=== PATIENT | female | born 1975 | race Caucasian/White ===

== ENCOUNTER 2023-07-08 18:00 | Emergency (ER) | payer OTHER, SELFPAY ==
--- NOTE | 2023-07-08 18:09 | ED.URI ---
HPI - URI/Sore Throat General Chief Complaint: Upper Respiratory Infection Stated Complaint: Sore Throat Source: patient and RN notes reviewed History of Present Illness HPI Narrative: 48 yo F presents to urgent care with complaints of sore throat, losing her voice, congestion, and headache. Pt states she had a sore throat and headache 2 weeks ago and was seen at her MD's office where she tested negative for strep. Pt was given Amoxicillin anyway and states her symptoms went away in 2 days. Pt states she finished her Abx this past Monday. Pt states her symptoms returned yesterday. Pt states she feels like she has congestion in her upper chest but can't cough it up b/c her throat hurts. Pt also reports a pain under her left breast when she inhales deeply that just started 2 days ago. Reports bilateral ear fullness and pain and contributes it to her lymph node swelling/pain. Pt denies any fevers, chills, SOB, vomiting, diarrhea, or chest pain. Pt has been taking ibuprofen, tylenol, mucinex, and sudafed at home without relief. Related Data Home Medications Medication Instructions Recorded Confirmed sertraline 100 mg tablet (Zoloft) 100 mg PO DAILY 03/02/20 01/06/23 magnesium 250 mg tablet 250 mg PO DAILY 07/08/23 07/08/23 Allergies Allergy/AdvReac Type Severity Reaction Status Date / Time sulfamethoxazole Allergy Severe vomiting, Verified 07/08/23 18:09 [From Bactrim] itchiness, SOB sulfamethizole Allergy Unknown SOB Verified 07/08/23 18:09 trimethoprim Allergy Unknown SOB Verified 07/08/23 18:09 Review of Systems Review of Systems: Pertinent positives and pertinent negatives per HPI. [facility] Past Medical History Medical History (Updated 07/08/23 @ 19:29 by Linsey Min APRN) Depression HLD (hyperlipidemia) Family History Family History Mother Family history of chronic obstructive pulmonary disease Other Asthma Diabetes mellitus Family history of arthritis Family history of cardiovascular disease Hypertension Social History Social History Smoking packs per day: 0.5 Smoking cigarettes per day: 10.0 Years smoked: 10 Smoking pack-years: 5.00 Smoking status: Never smoker Tobacco type: cigarettes Second hand tobacco smoke exposure: Yes Alcohol intake: never Substance use: never Substance use type: does not use Lack of Transportation: No Lack of Food: Never True Current Housing: I Have Housing Concerned About Future Housing: No Difficulty Paying Gas/Electric Bills: No Difficulty Paying for Meds: No Currently Unemployed: No Education: Associate Degree Difficulty w/ Childcare or Family Care: No Living arrangements: with family Occupation/Education: occupation Comments At the time of my signature, I reviewed and agree with the nursing past medical, surgical, social, and family history. There is no relevant family history pertinent to the patient complaint. Exam Narrative: GENERAL: This is a well-nourished, well-developed patient, in no apparent distress. HEAD: normocephalic, atraumatic. EYES: Sclera clear/white. Vision is grossly intact. EARS: External ears normal, auditory canals clear and without drainage, TMs normal without perforation. Hearing grossly intact. NOSE: External nose normal with no obvious nasal discharge, nares without redness, no rhinorrhea. THROAT: Mucous membranes moist, posterior pharynx mildly erythremic. tonsils bilaterally 2+. Hoarse voice NECK: Neck supple, non-tender without lymphadenopathy, masses or thyromegaly. CARDIOVASCULAR: Regular rate and rhythm without murmurs, gallops, or rubs. RESPIRATORY: Clear to auscultation. Breath sounds equal bilaterally. No wheezes, rales, or rhonchi. GASTROINTESTINAL: Abdomen soft, non-tender, nondistended. Bowel sounds are active. No hepato-splenomegaly, or palpabl
[2023-07-08 18:10] VITALS: BP 112/71; PULSE 74; RESP 16; TEMP 37.3; O2SAT 99
[2023-07-08] MEDS: predniSONE 20 MG TABLET 60 MG PO (19:36)
== END 2023-07-08 19:39 | disposition home or self-care (01) ==
PROVIDERS: Emergency Provider Nurse Practitioner Family; PCP Family Medicine
DX: B34.9 Viral infection, unspecified (principal); E78.5 Hyperlipidemia, unspecified; F32.A Depression, unspecified; F17.210 Nicotine dependence, cigarettes, uncomplicated
CPT/HCPCS: 87081; 87880; 99213; G0463; J7512

== ENCOUNTER 2023-07-18 11:11 | Outpatient (CLI) | payer OTHER, SELFPAY ==
[2023-07-18 11:57] LABS: Basophils Percent Auto 0.3 % (0.2-1.2); Eosinophils Absolute Auto 0.1 K/mm3 (0-0.3); Eosinophils Percent Auto 1.3 % (0-4.4); Hemoglobin 12.9 g/dL (12.0-15.0); Immature Granulocyte Absolute 0.04 K/mm3 (0.00-0.031); Immature Granulocyte Percent A 0.4 % (0-0.5); Lymphocytes Absolute Auto 2.37 K/mm3 (0.9-3.2); Lymphocytes Percent Auto 24.2 % (18.3-44.2); Mean Corpuscular HGB Conc 33.1 g/dl (32-36); Mean Corpuscular Hemoglobin 30.1 pg (26-34); Mean Corpuscular Volume 91.1 fl (80-100); Mean Platelet Volume 8.7 fl (7.4-10.4); Monocytes Absolute Auto 0.5 K/mm3 (0.1-0.6); Monocytes Percent Auto 5.3 % (2.6-8.5); Neutrophils Absolute Auto 6.7 K/mm3 (1.3-6.7); Neutrophils Percent Auto 68.5 % (45.5-73.1); Platelet Count Result 271 k/mm3 (150-375); Red Blood Count 4.28 M/mm3 (4.2-5.4); Red Cell Distribution Width 13.3 % (11.5-14.5); White Blood Count 9.8 K/mm3 (4.5-10.0)
[2023-07-22 16:27] LABS: EBV Nuclear Ab Antibody >600.00 U/mL (<18.00); EBV Nuclear Ab Interpretation Past; EBV Virus Capsid Ag IgM Ab <36.00 U/mL (<36.00)
== END 2023-07-18 11:12 | disposition home or self-care (01) ==
PROVIDERS: PCP Family Medicine; Visit Provider Physician Assistant
DX: R50.9 Fever, unspecified (principal); J02.9 Acute pharyngitis, unspecified
CPT/HCPCS: 36415; 85025; 86664; 86665

== ENCOUNTER 2025-01-16 12:45 | Outpatient (CLI) | payer OTHER, SELFPAY ==
--- NOTE | ~2025-01-16 | MM_ITS ---
EXAMINATION: MM screening [facility] BI w clarence HISTORY: Screening TECHNIQUE: Craniocaudal and mediolateral oblique 3-D tomosynthesis images were obtained and synthetic 2-D images were generated. CAD analysis was submitted and interpreted. COMPARISON: 07/15/2019 and dating back to 04/05/2011 BREAST PARENCHYMAL COMPOSITION: The breasts are heterogeneously dense, which may obscure small masses . FINDINGS: Punctate calcifications are detected bilaterally, stable and benign in appearance. Stable parenchymal pattern without suspicious microcalcifications, architectural distortion, discrete masses or significant asymmetry. IMPRESSION: 1. No mammographic evidence of malignancy. 2. Recommend routine screening mammography in one year. BI-RADS Category 2: Benign finding(s). Reviewed, dictated and finalized at location A.
--- OUTSIDE RECORDS SUMMARY | 2025-01-16 13:30 | XMS_ITS | Data Portability ---
Author Organization [facility] [place] Address [address] [place] [address] Care Team Providers Care Chef German Name Role Phone DINA LINTON Primary Care Provider [phone] Assessment Encounter Date Assessment Date Assessment LastModified by Organization Details LastModified Time 04/06/2022 04/06/2022 Annual gynecological exam performed. Patient will come back in a year unless there are new symptoms. Suggest Calcium with Vitamin D if not eating in diet. Patient advised to get annual flu shot. Recommend yearly physicals and preform monthly breast exams. Genetic testing is available for patients with family history of cancer. Engage in safe sexual practices, use condoms. Encouraged to have daily exercise. Avoid tobacco and illicit drugs, moderation of alcohol. If BMI greater than 25 dietary consult advised. If you have any questions please call or email. mammogram order given Not available 04/06/2022 10:52:36 04/26/2023 04/26/2023 Annual gynecological exam performed. Patient will come back in a year unless there are new symptoms. [email or web address] Not available 04/26/2023 15:34:05 Plan of Treatment Reminders Order Date Submit Date Provider Last Modified By Organization Details Last Modified Time Details Appointments [facility]-EST 2024 02:30P M NESHA SILVERMAN NP Not available Not available Not available Lab testoster one, total, serum 2022 023 [facility] (Lab), [address], [place], [address], 04/27/2023 03:45:45 hormone panel, serum or plasma 2022 023 [facility] (Lab), [address], [place], [address], 04/27/2023 03:45:46 HbA1c (hemoglob in A1c), blood 2022 023 [facility] (Lab), [address], [place], [address], 04/27/2023 03:45:46 Referral None recorded. Procedures None recorded. Surgeries None recorded. Imaging MAMMO, screening , bilateral 2022 023 [email or web address] [facility], [address] [address], [place], [address], 07/26/2023 13:51:36 US, pelvis 2021 022 [email or web address] [facility], [address], [place], [address], 04/19/2022 20:16:26 US, transvagi nal 2021 022 [email or web address] [place], [address], [address], [place], [address], 04/19/2022 20:16:26 Medication Orders sertralin e 100 mg tablet 2021 022 [id number], [address], [place], [place], [id number], 04/06/2022 10:53:35 Wellbutri n XL 150 mg 24 hr tablet, extended release 2021 022 [facility]24375, [address], [place], [place], [id number], 04/06/2022 10:53:34 Patient TargetsNo targets recorded. Patient InstructionsNo instructions recorded. Reason for Referral None Reported. Results Created Date Observation Date Name Description Value Unit Range Abnormal Flag Note LastModifiedBy Organization Detail LastModifiedTime 06/17/20 21 06/17/2021 VAGIN ITIS/ VAGIN OSIS, DNA PROBE melina sp. detection, direct probe Negati ve negati ve Not Available [facility] (Lab) [address], [place], [address], 06/18/2021 11:07:34 06/17/20 21 06/17/2021 VAGIN ITIS/ VAGIN OSIS, DNA PROBE gardnerella vag. detection, direct probe Positi ve negati ve abnormal Not Available [facility] (Lab) [address], [place], [address], 06/18/2021 11:07:34 06/17/20 21 06/17/2021 VAGIN ITIS/ VAGIN OSIS, DNA PROBE trichomonas vag. detection, direct probe Negati ve negati ve Not Available [facility] (Lab) [address], [place], [address], 06/18/2021 11:07:34 04/06/20 22 04/06/2022 FSH / LH FSH 29.5 mIU/m L This assay was perfo rmed using [employer] ratio n reage nts and test kits. Value s obtai aneudy with other assay metho ds or kits canno t be used inter ring eably . Femal es Folli cular : 3.5-1 2.5 mIU/m L Ovula tion: 4.7-2 1.5 mIU/m L Lutea l: 1.7-7 .7 mIU/m L Postm enopa use: 25.8- 134.8 mIU/m L Not Available [facility] (Lab) [address], [place], [address], 04/07/2022 03:50:27 04/06/20 22 04/06/2022 FSH / LH LH 20.9 mIU/m L This assay was perfo rmed using [employer] n reage nts and test kits. Value s obtai aneudy with other assay metho ds or kits canno t be used inter ring eably . Femal es Mid-F ollic ular: 2.4-1 2.6 mIU/m L Mid-C ycle: 14.0- 95.6 mIU/m L Mid-L uteal : 1.0-1 1.4 mIU/m L Postm enopa use: 7.7-5 8.5 mIU/m L Not Available [facility] (Lab) [address], [place], [address], 04/07/2022 03:50:27 04/06/20 22 04/06/2022 IMAGE GUIDE D PAP AND HPV REGAR DLESS image guided Pap, HPV regardless of Pap result SEE RESULT S BELOW CASE REPOR T: Cytol ogy Gynec ologi cesia Repor t Case: [id number] Autho bigg radha Provi junie: Myra Burnett NP Colle cted: 04/06 1758 Order ing Locat ion: [place] Patho log[facility] Recei obinna: 04/07 0813 First Scree n: Yohana Hairston, CT Rescr een: Pham green, Zunilda keith, CT Speci men: Scree jayne Pap - Image d, Cervi x STATE MENT OF ADEQU ACY: Satis facto ry for evalu ation Trans forma tion zone compo nent prese nt FINAL DIAGN OSIS: Negat lizz for Intra epith elial Lesio n or Wilton bean (NIL) . Funga l organ isms morph ologi dae consi stent with Katty da spp. Elect west chakraborty eula d by Zunilda Romero, CT on 2021 at 3:14 PM ----- ----- ----- ----- ----- ----- ----- ----- ----- ----- ----- ----- ----- ----- ----- ----- ----- ---- HPV RESUL TS: HPV mRNA E6/E7 : No HPV mRNA Detec mark NOTE: This high risk HPV mRNA assay detec ts fourt een high- risk HPV types (16, 18, 31, 33, 35, 39, 45, 51, 52, 56, 58, 59, 66, 68) witho ut diffe renti ation . COMME NT: Note: This speci men was revie wed by a Cytot echno logis t and/o r Patho logis t (as indic ated in this repor t) after evalu ation using the Thinp rep Imagi ng Syste m. CLINI CESIA INFOR MATIO N: Menst rual Statu s: LMP (if appli cable ): Clini cesia Histo ry/Pr eviou s Pap: Type of Neopl soctt (if appli cable ): Signi fican t Clini cesia Findi ngs: Other Histo ry: Hormo erich (if appli cable ): PAP EDUCA ROSHNI L NOTE: The Pap Test is a scree jayne test with an inher ent false negat lizz rate. Liqui d-bas ed sampl ing may decre ase, but will not elimi noemí, false negat lizz resul ts. A negat lizz resul t does not precl ude the prese nce and/o r devel opmen t of disea se, since the prese nce of abnor mal cells in the sampl e depen ds on the locat ion of the lesio n and sampl ing techn ique. Trey nued regul ar scree jayne is the best metho d of cance r preve ntion . If repor mark cytol ogic findi ng do not corre late with physi cesia and/o r histo rical findi ngs, furth er inves tigat ion is recom janki d, as clini dae medina nted. Not Available [facility] (Lab) [address], [place], [address], 04/11/2022 16:17:14 04/26/20 23 04/26/2023 TESTO STERO NE, TOTAL testosterone , total 30 NG/dL 0-100 Not Available [facility] (Lab) [address], [place], [address], 04/27/2023 03:45:45 04/26/20 23 04/26/2023 FSH, LH, ESTRA DIOL estradiol <5.0 pg/mL This assay was perfo rmed using [employer] ratio n reage nts and test kits. Value s obtai aneudy with other assay metho ds or kits canno t be used inter [facility] . Femal e Estra diol Range s: Folli cular phase 12.4- 233 pg/mL Ovula tion phase 41.0- 398 pg/mL Lutea l phase 22.3- 341 pg/mL Postm enopa usal< 5-138 pg/mL Healt hy Pregn ant Women 1st Trime ster1 54-32 43 pg/mL 2nd Trime ster1 561-2 1280 pg/mL 3rd Trime ster8 525-> 66123 pg/mL Not Available [facility] (Lab) [address], [place], [address], 04/27/2023 03:45:46 04/26/20 23 04/26/2023 FSH, LH, ESTRA DIOL FSH 92.3 mIU/m L This assay was perfo rmed using [employer] ratio n reage nts and test kits. Value s obtai aneudy with other assay metho ds or kits canno t be used inter [facility] . Femal es Folli cular : 3.5-1 2.5 mIU/m L Ovula tion: 4.7-2 1.5 mIU/m L Lutea l: 1.7-7 .7 mIU/m L Postm enopa use: 25.8- 134.8 mIU/m L Not Available [facility] (Lab) [address], [place], [address], 04/27/2023 03:45:46 04/26/20 23 04/26/2023 FSH, LH, ESTRA DIOL LH 56.2 mIU/m L This assay was perfo rmed using [employer] ratio n reage nts and test kits. Value s obtai aneudy with other assay metho ds or kits canno t be used inter [facility] . Femal es Mid-F ollic ular: 2.4-1 2.6 mIU/m L Mid-C ycle: 14.0- 95.6 mIU/m L Mid-L uteal : 1.0-1 1.4 mIU/m L Postm enopa use: 7.7-5 8.5 mIU/m L Not Available [facility] (Lab) [address], [place], [address], 04/27/2023 03:45:46 04/26/20 23 04/26/2023 HEMOG LOBIN A1C hemoglobin A1C 5.5 % 0-5.6 The Ameri can Diabe erika Assoc iatio n recom mends that a prima ry goal of thera py shoul d be a HBA1C of < 7% and that physi cians shoul d reeva luate the treat ment regim en in patie nts with HBA1C value s consi stent ly > 8%. <5.7% Meme l 5.7 - 6.4% Incre ased risk for diabe erika >=6.5 % Diagn ostic of diabe erika <7.0% Goal of thera py >8.0% Actio n sugge sted Not Available [facility] (Lab) [address], [place], [address], 04/27/2023 03:45:46 04/26/20 23 04/26/2023 IMAGE GUIDE D PAP AND HPV REGAR DLESS image guided Pap, HPV regardless of Pap result SEE RESULT S BELOW abnormal CASE REPOR T: Cytol ogy Gynec ologi cesia Repor t Case: [id number] Autho bigg g Provi junie: Yang Caceres Colle cted: 04/26 1544 [employer]OR Order ing Locat ion: [place] Patho logy Recei obinna: 04/27 0202 First Scree n: Yohana Hairston ay, CT Patho logis t: Gladis Ring MD Speci men: Scree jayne Pap - Image d, Cervi x STATE MENT OF ADEQU ACY: Satis facto ry for evalu ation Trans forma tion zone compo nent prese nt FINAL DIAGN OSIS: Epith elial Cell Abnor malit y, Squam ous Cell: Atypi cesia Squam ous Cells of Undet ermin ed Bhargav langford (ASC- [place]). Elect west bowman by Gladis Ring MD on 023 at 2:49 PM ----- ----- ----- ----- ----- ----- ----- ----- ----- ----- ----- ----- ----- ----- ----- ----- ----- ---- HPV RESUL TS: HPV mRNA E6/E7 : No HPV mRNA Detec mark NOTE: This high risk HPV mRNA assay detec ts fourt een high- risk HPV types (16, 18, 31, 33, 35, 39, 45, 51, 52, 56, 58, 59, 66, 68) witho ut diffe renti ation . COMME NT: This speci men was revie wed by a Cytot echno logis t and/o r Patho logis t (as indic ated in this repor t) after evalu ation using the Thinp rep Imagi ng Syste m. CLINI CESIA INFOR MATIO N: Menst rual Statu s: LMP (if appli cable ): Clini cesia Histo ry/Pr eviou s Pap: Type of Neopl scott (if appli cable ): Bhargav west Clini cesia Findi ngs: Other Histo ry: Hormo erich (if appli cable ): BRIDGETTE AGUILA FOLLO W-UP: Follo w up as warra nted, based on curre nt guide lines and indiv idual patiaamir nt consi derat ions. Not Available [facility] (Lab) [address], [place], [address], 04/27/2023 15:53:48 04/19/20 22 04/19/2022 US, trans vagin al No observ ation record ed. [email or web address] [address] [address], [place], [address], 04/21/2022 15:46:34 04/19/20 22 04/19/2022 US, pelvi s No observ ation record ed. [email or web address] [place] [address], [place], [address], 04/19/2022 12:10:20 04/19/20 22 04/19/2022 US, trans vagin al No observ ation record ed. [email or web address] [place] [address], [place], [address], 04/19/2022 12:10:29 Result Notes None recorded. Problems Name Problem SNOMED Code Status Onset Date Resolution Date Notes Provider Name and Address Organization Details Recorded Time Carbuncl e 685306461 Completed 201711/04/2020 Carbuncl e, unspecif ied;Bandar rded Elsewher e: No Locat ion: [facility] S ource: EHR Java Designer manuel: N Tien ce ID: [id number] Alan lable Time: 10:45:00 AM Nelly stone [facility] 10:16:55 Cyst of ovary [id number] Completed 201411/04/2020 Other and unspecif ied ovarian cyst;Rec orded Elsewher e: No Locat ion: [facility] S ource: EHR Java Designer manuel: Moses Chauhan ce ID: [id number] Alan lable Time: 10:06:14 AM Nelly stone [facility] 10:16:58 Amenorrh ea [id number] Completed 201411/04/2020 amenorrh ea;Recor ded Elsewher e: No Locat ion: [facility] S ource: EHR Java Designer manuel: Moses Chauhan ce ID: [id number] Alan lable Time: 10:06:14 AM Nelly stone [facility] 10:16:52 Lesion of ovary Completed 201811/04/2020 Other ovarian cyst, right side;Rec orded Elsewher e: No Locat ion: Toib rutledge [facility] S ource: EHR Java Designer manuel: N Keshavti ce ID: [id number] Alan lable Time: 10:45:00 AM Nelly Victor [place], [facility] 1 10:17:01 Secondar y amenorrh ea [id number] Completed 201811/04/2020 Secondar y amenorrh ea;Recor ded Elsewher e: No [facility] our[facility]: EHR Java Designer manuel: N Keshavti ce ID: [id number] Alan lable Time: 02:30:00 PM Nelly Victor chase [facility] 10:17:44 Cyst of ovary Completed 201806/17/2021 Unspecif ied ovarian cyst, unspecif ied side;Rec orded Elsewher e: No [facility]at [facility] S ource: EHR Java Designer manuel: N Keshavti ce ID: [id number] Alan lable Time: 08:30:00 AM Laverne stone [facility] 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 10:18:34 Menopaus al symptom [id number] Completed 201211/04/2020 Menopaus al or female climacte breanna states;R ecorded Elsewher e: No [facility]at [facility] S ource: EHR Java Designer manuel: N Keshavti ce ID: [id number] Alan lable Time: 10:45:00 AM Nelly Victor chase [facility] 10:18:16 Screenin g for malignan t neoplasm of rectum Completed 201611/04/2020 Encounte r for screenin g for malignan t neoplasm of rectum;R ecorded Elsewher e: No Locat ion: [facility] S ource: EHR Java Designer manuel: Moses Chauhan ce ID: [id number] Alan lable Time: 08:30:00 AM Nelly Victor [facility] [address] 10:17:[address] Concept Completed 201511/04/2020 Encntr for general adult medical exam w/o abnormal findings ;Recorde d Elsewher e: No Locat ion: [facility] S ource: EHR Java Designer manuel: Moses Chauhan ce ID: [id number] Alan lable Time: 01:00:00 PM Nelly Victor [facility] 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 10:17:25 Polyp of corpus uteri [id number] Completed 201811/04/2020 Polyp of corpus uteri;Re corded Elsewher e: No Locat ion: [facility] S ource: EHR Java Designer manuel: Moses Chauhan ce ID: [id number] Alan lable Time: 02:00:00 PM Nelly Victor chase [facility] 10:18:27 Speciali zed medical examinat ion Completed 201411/04/2020 Gynecolo gical Examinat ion;Bandar rded Elsewher e: No [facility]at [facility] S ource: EHR Java Designer manuel: Moses Parrti ce ID: [id number] Alan lable Time: 09:00:00 AM Nelly Victor [place], [facility] 10:18:37 Pregnanc y test negative [id number] Completed 201311/04/2020 Pregnanc y examinat ion or test, negative result;R ecorded Elsewher e: No Locat ion: [facility] S ource: EHR Java Designer manuel: N Keshavti ce ID: [id number] Alan lable Time: 09:15:00 AM Nelly Victor [facility], [facility] 10:17:32 Depressi ve disorder [id number] Completed 201206/17/2021 Depressi on;Recor ded Elsewher e: No Locat ion: [facility] S ource: EHR Java Designer manuel: N Tien ce ID: [id number] Alan lable Time: 10:45:00 AM Laverne stone, [facility] 10:59:43 Overweig ht [id number] Completed 201411/04/2020 Overweig ht;Recor ded Elsewher e: No Locat ion: [facility] S ource: EHR Java Designer manuel: Moses Chauhan ce ID: [id number] Alan lable Time: 09:15:00 AM Nelly Victor [place], [facility] 10:17:28 Dyspareu maggy [id number] Completed 201211/04/2020 Dyspareu maggy;Bandar rded Elsewher e: No Locat ion: [facility] S ource: EHR Java Designer manuel: Moses Parrti ce ID: [id number] Alan lable Time: 10:00:00 AM Nelly Victor chase, [facility] 10:18:20 Screenin g for malignan t neoplasm of cervix Completed 201711/04/2020 Encounte r for screenin g for malignan t neoplasm of cervix;R ecorded Elsewher e: No Locat ion: [facility] N Keshavti ce ID: [id number] Alan lable Time: 11:00:00 AM Nelly Victor [facility] 1 10:17:38 Finding of menstrua l bleeding Completed 201811/04/2020 Menorrha dory;Bandar rded Elsewher e: No Locat ion: [facility] S ource: [facility] manuel: N Practi ce ID: [id number] Alan lable Time: 02:00:00 PM Nelly Victor [facility] 1 10:17:17 Dysfunct ional uterine bleeding Completed 201311/04/2020 Other disorder s of menstrua tion and other abnormal bleeding from female genital tract;Re corded Elsewher e: No Locat ion: [facility] S ource: [facility] manuel: N Practi ce ID: [id number] Alan lable Time: 09:15:00 AM Nelly Victor [facility] 1 10:17:11 Abnormal uterine bleeding [id number] 100 Completed 201811/04/2020 Other specifie d abnormal uterine and vaginal bleeding ;Recorde d Elsewher e: No Locat ion: [facility] S ource: [facility] manuel: N Practi ce ID: [id number] Alan lable Time: 11:15:00 AM Nelly Victor [facility] 1 10:16:48 Disorder of skin and/or subcutan eous tissue [id number] Completed 201711/04/2020 Disorder of the skin and subcutan eous tissue, unspecif ied;Bandar rded Elsewher e: No Locat ion: [facility] N Practi ce ID: [id number] Alan lable Time: 02:00:00 PM Nelly stone [facility] 10:17:09 Female genital organ symptoms [id number] Completed 201411/04/2020 Unspecif ied symptom associat ed with female genital organs;R ecorded Elsewher e: No Locat ion: [facility] S ource: EHR Java Designer manuel: N Keshavti ce ID: [id number] Alan lable Time: 08:45:00 AM Nelly Victor [facility] 1 10:17:14 Adult health examinat ion Completed 201411/04/2020 ROUTINE MEDICAL EXAM;Rec orded Elsewher e: No Locat ion: [facility] S ource: EHR Java Designer manuel: N Keshavti ce ID: [id number] Alan lable Time: 09:00:00 AM Nelly stone, [facility] 10:16:49 Abdomina l pain [id number] Completed 201311/04/2020 Abdomina l pain;Rec orded Elsewher e: No Locat ion: [facility] S ource: EHR Java Designer manuel: N Keshavti ce ID: [id number] Alan lable Time: 12:00:00 PM Nelly stone [facility] 10:16:46 Right lower quadrant pain [id number] Completed 201311/04/2020 Abdomina l pain, right lower quadrant ;Practic e ID: 0001 Nelly Victor [facility] 10:18:12 Problem Notes None recorded. Procedures Surgical History Date Name Laterality Status Provider Name and Address Organization Details Recorded Time 04/26/20 Date of Last Pap Smear completed Alejandra Yoon [facility] 01/10/2025 12:25:25 11/25/19 Endometrial Biopsy completed Myra Crowder CNM [address], [place], [address], [place] [facility] 11/25/2020 16:21:27 11/25/19 21 endometrial biopsy completed Nelly [facility] 11/25/2020 16:14:31 07/15/20 19 Date of Last Mammogram completed [facility] 11/04/2020 20:10:29 10/23/19 16 Appendectomy completed [facility] 11/04/2020 20:16:40 10/23/19 04 Dilation and Curettage completed [facility] 11/04/2020 20:16:30 Imaging Results Imaging Date Name Status LastModified by Organization Details LastModified Time 04/19/2022 US, transvaginal completed Tobi rutledge [address], [place], [address], 04/21/2022 15:46:34 04/19/2022 US, pelvis completed [email or web address] [facility] [address], [place], [address], 04/19/2022 12:10:20 04/19/2022 US, [facility]aginal [email or web address] [address], [place], [address], 04/19/2022 12:10:29 Procedure Notes None recorded. Medical Equipment None Reported. Allergies Allergen ID Allergen Name Allergen Category Reaction Reaction Severity Criticality Documentation Date Start Date Code Code System Note Provider Name and Address Organization Details Recorded Time 9596 sulfameth oxazole medicatio n Not available Not available Not available 10/09/2020 13809 RxNorm Laverne stone [facility] 10:59:34 9597 trimethop rim medicatio n Not available Not available Not available 10/09/2020 71895 RxNorm Laverne Dasilva [facility], [facility] 10:59:36 Medications Name Sig Start Date Stop Date Status Note LastModified by Organization Details LastModified Time buspirone 5 mg tablet TAKE 1 TABLET BY MOUTH THREE TIMES DAILY NEEDED active Not Available Not Available No t Available sertralin e 100 mg tablet TAKE 1 TABLET BY MOUTH EVERY DAY active Not Available Not Available No t Available simvastat in 10 mg tablet TAKE 1 TABLET BY MOUTH DAILY active Not Available Not Available No t Available terconazo le 0.8 % vaginal cream Insert 1 applicat orful by vaginal route every night for 3 nights 07/08 completed Not Available Not Available Not Available Zoloft 20 mg/mL oral concentra te take 2.5 millilit er by oral route every day and mix with 4 oz. (1/2 cup) of water, fabiana meir, lemon/li me soda, lemonade or orange juice ONLY 08/16 completed Prescrib ed Elsewher e: Yes Loca tion: [facility] By: demetriahar tz Encou nter DateTime : 08/15/20 12 04:12:53 PM Not Available Not Available Not Available Diflucan 150 mg tablet Take 1 tablet by oral route. 04/26 completed Not Available Not Available Not Available metronida zole 500 mg tablet Take 1 tablet every 12 hours by oral route for 7 days. 07/08 completed Not Available Not Available Not Available acyclovir 400 mg tablet take 1 tablet by oral route every 12 hours 07/16 completed Prescrib ed Elsewher e: No Locat ion: [facility] By: nadeem Peters r DateTime : 01/12/20 19 10:26:32 AM Not Available Not Available Not Available ofloxacin 0.3 % ear drops INSTILL 10 DROPS BOTH EARS DAILY FOR 7 DAYS active Not Available Not Available No t Available Cipro 500 mg tablet take 1 tablet by oral route every 12 hours 11/16 completed Prescrib ed Elsewher e: No [facility] By: nadeem Peters r DateTime : 04/23/20 18 10:45:00 AM Not Available Not Available Not Available progester one micronize d 200 mg capsule TAKE 1 CAPSULE BY MOUTH EVERY DAY 04/26 completed Not Available Not Available Not Available Drysol Dab-O-Mat ic 20 % topical solution apply 1 by Topical route every day 03/16 completed Prescrib ed Elsewher e: No Locat ion: [facility] By: felix rGaff ter DateTime : 08/16/20 12 01:30:00 PM Not Available Not Available Not Available Provera 10 mg tablet take 1 tablet by oral route every night x 10 nights 07/16 completed Prescrib ed Elsewher e: No Locat ion: [facility] By: nadeem Peters r DateTime : 06/19/20 19 04:30:00 PM Not Available Not Available Not Available Valtrex 500 mg tablet TAKE 1 TABLET BY MOUTH DAILY 01/11 completed Prescrib ed Elsewher e: No Locat ion: [facility] By: felix morris DateTime : 01/12/20 19 10:26:32 AM Not Available Not Available Not Available albuterol sulfate HFA 90 mcg/actua tion aerosol inhaler INHALE 1 PUFF BY MOUTH EVERY 4 HOURS NEEDED FOR SHORTNES S OF BREATH OR WHEEZING active Not Available Not Available No t Available spironola ctone 50 mg tablet take 1 tablet by oral route every day 11/16 completed Prescrib ed Elsewher e: No Locat ion: [facility] By: nadeem Peters r DateTime : 05/24/20 18 09:15:00 AM Not Available Not Available Not Available amoxicill in 875 mg-potass ium clavulana te 125 mg tablet TAKE 1 TABLET BY MOUTH TWICE DAILY active Not Available Not Available No t Available Bactrim DS 800 mg-160 mg tablet take 1 tablet by oral route every 12 hours 03/16 completed Prescrib ed Elsewher e: No Locat ion: [facility] By: felix morris DateTime : 10/06/20 16 03:00:00 PM Not Available Not Available Not Available Testim 50 mg/5 gram (1 %) transderm al gel active Not Available Not Available Not Available ciproflox acin 0.3 %-dexamet hasone 0.1 % ear drops,charlene pension INT 4 GTS INTO AU Q 12 H FOR 7 DAYS 11/04 completed Not Available Not Available Not Available bupropion HCl XL 150 mg 24 hr tablet, extended release TAKE 1 TABLET BY MOUTH EVERY DAY active Not Available Not Available No t Available acyclovir 04/26 completed Not Available Not Available Not Available cephalexi n 750 mg capsule take 1 capsule by oral route 2 times every day 11/16 completed Prescrib ed Elsewher e: No Locat ion: [facility] By: nadeem Peters r DateTime : 04/12/20 18 02:00:00 PM Not Available Not Available Not Available FloLipid 20 mg/5 mL (4 mg/mL) oral suspensio n take 5 millilit er by oral route every day in the evening 06/19 completed Prescrib ed Elsewher e: Yes Loca tion: [facility] By: [email or web address] z Encoun ter DateTime : 12/05/19 19 11:00:00 AM Not Available Not Available Not Available FloLipid 40 mg/5 mL (8 mg/mL) oral suspensio n take 5 millilit er by oral route every day in the evening 12/05 completed Prescrib ed Elsewher e: Yes Loca tion: [facility] By: nadeem Peters r DateTime : 11/16/19 19 02:30:00 PM Not Available Not Available Not Available Vitals Date Recorded Body height Body mass index (BMI) Body weight Systolic blood pressure Diastolic blood pressure Provider Name and Address Organization Details Last Updated DateTime 07/08/2021 155.58 cm 33.4 kg/m2 51747.44 g 106 mm[Hg] 70 mm[Hg] Mariposameenu Walter [facility] 1 11:37:18 Date Recorded Body height Body mass index (BMI) Body weight Systolic blood pressure Diastolic blood pressure Provider Name and Address Organization Details Last Updated DateTime 04/06/2022 155.58 cm 32.2 kg/m2 92406.89 g 97 mm[Hg] 68 mm[Hg] Nelly Victor [facility] 2 09:31:50 Date Recorded Body height Body mass index (BMI) Body weight Systolic blood pressure Diastolic blood pressure Provider Name and Address Organization Details Last Updated DateTime 04/26/2023 155.58 cm 32 kg/m2 35696.3 g 117 mm[Hg] 77 mm[Hg] Dalila Akbar [facility] 3 15:34:23 Social History Question Answer Notes LastModified by Organizat ion Details LastModified Time Tobacco Smoking Status Current Every Day Smoker Ankur Anthony chase, [facility] 03/02/2022 16:54:19 Do You Have An Advance Directive? No [email or web address] Information not available 06/17/2021 What Is Your Level Of Alcohol Consumption? Occasional [email or web address] Information not available 11/04/2020 If You Are , What Was Your Level Of Alcohol Consumption Prior To ? Occasional [email or web address] Information not available 03/02/2022 Are You Blind Or Do You Have Difficulty Seeing? No Information not available 06/17/2021 What Is Your Level Of Caffeine Consumption? Occasional [email or web address] Information not available 11/25/2020 How Much Tobacco Do You Chew? None [email or web address] Information not available 06/17/2021 In The 14 Days Before Symptom Onset, Have You Had Close Contact With A Laboratory-confir med COVID-19 While That Case Was Ill? No [email or web address] Information not available 06/17/2021 In The 14 Days Before Symptom Onset, Have You Had Close Contact With A Person Who Is Under Investigation For COVID-19 While That Person Was Ill? No Information not available 06/17/2021 Have You Been To An Area Known To Be High Risk For COVID-19? No [email or web address] Information not available 06/17/2021 Are You Deaf Or Do You Have Serious Difficulty Hearing? No Information not available 06/17/2021 What Type Of Diet Are You Following? REGULAR [email or web address] Information not available 06/17/2021 What Is The Highest Grade Or Level Of School You Have Completed Or The Highest Degree You Have Received? 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 Yes [email or web address] Information not available 06/17/2021 Have You Ever Been Counseled For Unhealthy Alcohol Use? No [email or web address] Information not available 03/02/2022 Do You Use Protection During Sex? No [email or web address] Information not available 06/17/2021 Do You Use Your Seat Belt Or Car Seat Routinely? Yes Information not available 06/17/2021 Do You Have Smoke And Carbon Monoxide Detectors In Your Home? Yes Information not available 06/17/2021 At What Age Did You Start Smoking Tobacco? 22 [email or web address] Information not available 06/17/2021 How Much Tobacco Do You Smoke? 0.25 PPD [email or web address] Information not available 11/04/2020 Do You Feel Stressed (tense, Restless, Nervous, Or Anxious, Or Unable To Sleep At Night)? [id number] Information not available 06/17/2021 Do You Use Any Illicit Or Recreational Drugs? No [email or web address] Information not available 11/04/2020 Do You Use Sunscreen Routinely? Yes Information not available 06/17/2021 Has Tobacco Cessation Counseling Been Provided? No [email or web address] Information not available 03/02/2022 Have You Used IV Drugs? No [email or web address] Information not available 06/17/2021 Do You Or Have You Ever Used Any Other Forms Of Tobacco Or Nicotine? No [email or web address] Information not available 03/02/2022 Sex: Unknown Functional Status Question Answer Note LastModified by Organizat ion Details LastModified Time Do you have difficulty walking or climbing stairs? No [email or web address] Information not available 04/06/2022 Are you able to walk? YESWOREST [email or web address] Information not available 06/17/2021 Are you able to care for yourself? Yes Information not available 04/06/2022 Do you have difficulty dressing or bathing? No [email or web address] Information not available 04/06/2022 What is your exercise level? Occasional [email or web address] Information not available 11/04/2020 Mental Status None recorded. Family History Relationship Description Onset Age of this Age Resolved Age Notes LastModified by Organization Details LastModified Time Paternal Aunt Malignant tumor of colon Not available 11/04 20:17:57 Paternal Grandfather Malignant tumor of colon Not available 11/04 20:17:57 Paternal Grandfather Hypertensive disorder [email or web address] Not available 11/04 20:18:37 Unspecified Relation Diabetes mellitus [email or web address] Not available 11/04 20:18:10 Paternal Grandmother Malignant tumor of ovary [email or web address] Not available 11/04 20:18:23 Medical History Condition Response Allergies (Food, seasonal, environmental ) N Other N Breast Cancer N Drug/Latex Allergies/Reactions N Blood Transfusion N Dermatologic Disorders N Lung Disease N Defects or Inherited Disease N Breast Problem N Gestational Diabetes N Hematologic disorders N Anesthesia Complications N History of STI Y Deep Vein Thrombosis N Polycystic ovary syndrome N Anxiety Disorder Y Autoimmune disease N Arthritis N Infertility N Polyps N Acid Reflux (GERD) N History of abnormal pap Y Cancer N Stroke N Varicosities N Neurologic/Epilepsy N Endometriosis N High Cholesterol Y Headaches N Fibromyalgia N Kidney Disease N Heart Problems N Kidney or Bladder Problems N Thyroid Problems N GI Problems N Eating Disorder N Anemia N Art (IVF or FET) N Psychiatric Illness N Ovarian Cancer N Diabetes N Pulmonary (TB, Asthma) N Hepatitis/Liver Disease N Eczema N Urinary Tract Infection N Abuse/Domestic Violence N Asthma N Trauma/Violence N Depression/ depression Y Heart Disease N Pre-Eclampsia N Hypertension Y Osteoporosis N Thrombophilias N Gynecological History Statement/Question Response Abnormal Pap Y Date of Last Mammogram 07/15/2019 On BCP's at Conception? N N Was last menstrual period normal N STIs/STDs Y HPV Vaccine N Current Control Method None Age at First Child 21 Are cycles usually normal N Sexually Active? Y Menses Monthly N Age of first menstrual cycle 13 Date of Last Pap Smear 04/26/2023 Sexual Problems? Y LMP Unknown N 06/19/2019 Obstetrics History GPAL:G 4 P 3 0 1 3 Type Value Full Term 3 Spontaneous 1 Living 3 Total 4 Past Encounters Encounter ID Performer Location Encounter Start Date Encounter Closed Date Diagnosis/Indication Diagnosis SNOMED-CT Code Diagnosis ICD10 Code Diagnosis Note [id number] Myra Crowder [facility] [address],[place] [address] 11/04/2020 09:37:16 11/04/2020 11:40:12 Gynecologic examination 03327228 Z01.419 Amenorrhea 43989165 N91. 2 [id number] Marissa Gayle [facility] [address],[place] [address] 11/05/2020 14:27:52 11/05/2020 15:18:55 Amenorrhea 58388211 N91.2 N84.0 [id number] Myra Crowder [facility] [address],[place] [address] 11/25/2020 15:50:40 11/25/2020 17:56:27 Endometrium thickened 493727205 R93.89 [id number] Didi Jacobo [facility] [address],[place] [address] 06/17/2021 10:50:32 06/17/2021 14:00:49 Urinary symptoms 071098905 R39.9 Vaginitis 57082566 N76.0 Discussed use of mild soap like dove or ivory, cotton underwear w/out dye, hypoallerg enic detergent, wipe from front to back, avoid tub baths, keep perineum clean and dry, d/c use of baby wipes. Encouraged daily intake of yogurt or womens health probiotic. Internal and external affirm collected. [id number] Ned Rai MD [facility] [address],[place] [address] 07/08/2021 11:20:40 07/08/2021 14:27:26 Skin lesion 43587015 L98.9 Patient reports skin lesion in the inferior aspect of the right breast. It is nontender. A is a 1 cm x 1 cm lump. It is at the skin surface. It is not warm, it may be slightly indurated. This area was examined. There is a skin lesion that looks like a healing skin abscess. There is some erythema and some induration . It is nontender. It is at the 6 o'clock position below the nipple. Is about 4 cm from the nipple. We agreed to observe. We she was offered excision. She has a similar lesion on her medial thigh on the left side. [id number] Myra Crowder [facility] [address],[place] [address] 03/02/2022 16:53:17 03/04/2022 08:23:27 [id number] Myrarobert Crowder [facility] [address],[place] [address] 04/06/2022 09:20:28 04/06/2022 10:58:01 Gynecologic examination 95727369 Z01.419 Irregular periods 061637 07 N92.6 rpt labs and us Anxiety 43752789 F41.9 [id number] [facility] [address],[place] [address] 04/19/2022 09:31:11 04/19/2022 11:05:46 Irregular periods 40839156 N92.6 [id number] Yvonne [facility] [address],[place] [address] 04/26/2023 15:25:25 04/26/2023 16:04:08 Gynecologic examination 06883324 Z01.419 Suggested Calcium with Vitamin D 1200-1500m g daily. Patient advised to get an annual flu shot in the fall and she could obtain at [facility] or [facility] take care clinic. Also to obtain TDap vaccinatio n if you have not had one in the last 10 years. Recommend yearly mammograms . Encouraged monthly self breast exams. Encourage safe sexual practices, to use condoms and limit partners if not already in a monogamous relationsh ip. Engage in daily exercise of low impact aerobic exercise 45-60 minutes 4-5 times weekly. Avoid tobacco and illicit drugs as well as using moderation with alcohol intake less than 1-2 8 oz beverages daily. This lifestyle behavior pattern will lead to less health conditions and longer life span. If BMI greater than 25 weight watchers or dietary consult advised. All questions have been answered. Patient appears to understand informatio n, but if you have any questions please call or respond to this email. Pap/hpv sentSTD Screen declinedGe netic Screen discussedC olon Screen PCPDexa Screen PCPRoutine Labs PCP/ordere d Lack or lo ss of sexual desire 860652373 F52.0 Counseled on trial of Testim for low libidoAppl y two drops to each inner thigh daily.RTO x 4wks med check Counseled on r/b's and most common possible SE's.Will repeat testostero ne levels in 4wks. Perimenopa usal disorder 139318843 N95.9 Check yearly labs & if in menopause ranges no need for USIf still perimenopa use will need US to be updated.Th is will determine if she needs to continue to use q3mos prometrium . Adult heal th examination 027745278 Z00.00 Screening mammography 24 012495 Z12.31 Health Concerns Section Related Observation LastModified by Organization Detai ls LastModified Time None Recorded Concern Status LastModified by Organization Details LastModified Time None Recorded Advance Directives Directive N: Payers Encounter Date Sequence Insurance Name Policy Number Policy Song Covered Member ID Song Member ID Guarantor Name 07/08/2021 1 [facility] [id number] Wili Vicente [id number] Nerissa Vicente 03/02/2022 1 [facility] [id number] Wili Vicente [id number] Nerissa Vicente 04/06/2022 1 [facility] [id number] Wili Vicente [id number] Nerissa Vicente 04/19/2022 1 [facility] [id number] Wili Vicente [id number] Nerissa Vicente 04/26/2023 1 [facility] [id number] Wili Vicente [id number] Nerissa Kiana Jules Notes Date Note Type Note Provider Name and Address Organization Details Recorded Time 07/08/2021 text/html Patient reports skin lesion in the inferior aspect of the right breast. It is nontender. A is a 1 cm x 1 cm lump. It is at the skin surface. It is not warm, it may be slightly indurated. This area was examined. There is a skin lesion that looks like a healing skin abscess. There is some erythema and some induration. It is nontender. It is at the 6 o'clock position below the nipple. Is about 4 cm from the nipple. We agreed to observe. We she was offered excision. She has a similar lesion on her medial thigh on the left side. Ned Rai MD [address], [place], [address], [facility] 07/08/2021 14:26:18 03/02/2022 text/html rescheduled sp left for delivery Myra Crowder CNM [address], [place], [address], [facility] 03/04/2022 08:23:25 04/06/2022 text/html Annual GYNReported bypatient.Breast: No breast pain; No breast lump; No nipple discharge Sexual complaints:No sexual complaints; No pain during intercourse; Normal libido Menopausal Symptoms:No menopausal symptoms; Normal vaginal lubrication Psychological symptoms:No depression; No anxiety; No PMDD Preventive measures:Encourag e self breast examination; Encourage regular exercise; Encourage no tobacco useNotes:last year emb neg thicker lining and di prometrium, in last year maybe one or tw0 spots no cycle labs done Myra Crowder CNM [address], [place], [address], [facility] 04/06/2022 10:53:34 04/26/2023 text/html Annual GYNReported bypatient.Menstru al cycle:Perimenopau siddhartha(No menses >5yrs but labs still indicate perimenopause) Breast:No breast pain; No breast lump; No nipple discharge Current Contraception:Bir th control not practiced Sexual complaints:No sexual complaints; No pain during intercourse; Normal libido Menopausal Symptoms:No menopausal symptoms; Normal vaginal lubrication Psychological symptoms:No depression; No anxiety; No PMDD Preventive measures:Encourag e self breast examination; Encourage regular exercise; Encourage no tobacco use MA[facility] [address], [place], [address], [facility] 04/26/2023 16:03:14 OBGyn Episode Ob Episode Information Episode Created Date Number of Fetuses Patient Bloodtype Patient rh Status Prepregnancy Weight lbs Domestic Partner Domestic Partner Phone Father Name Personal Banking Advisor Status 11/04/19 21 1 CLOSED Fetus Data First Name Last Name Admitted to NICU Weight (g) Sex Living Outcome Pediatric Complications Fetus ID Race Codes Race Delivery Type 3770.25 6704 F Full Term 7104 Vaginal Delivery Clayton Calculation Initial Clayton Date Initial Exam Date Initial Exam Provider Initial Ultrasound Date Last Menstrual Period Date Ultra Sound Weeks Gestation 0 Eighteen To Twenty Week Clayton Update Ultra Sound Date Fundal Height At Umbil Quickening Date Ultra Sound Latest Weeks Gestation Final Clayton Confirmed By Final Clayton Confirmed Date Final Clayton Date Ultra Sound Latest Days Gestation 0 0 Menstrual History Last Menstrual Date Menses Monthly On Bcp Conception Prior Menses Frequency Hcg Plus Date Menarche Onset Age Delivery Information Delivery Date Delivery Type Labor Anesthesia Weeks Gestation Incision Type Labor Labor Length Hrs Delivered By Post Complications Tubal Sterilization Discharge Date Comments 7 37 Discharge Information Feeding Method Contraceptive Method Maternal HG B and HCT Levels Ob Episode Information Episode Created Date Number of Fetuses Patient Bloodtype Patient rh Status Prepregnancy Weight lbs Domestic Partner Domestic Partner Phone Father Name Personal Banking Advisor Status 11/04/19 21 1 CLOSED Fetus Data First Name Last Name Admitted to NICU Weight (g) Sex Living Outcome Pediatric Complications Fetus ID Race Codes Race Delivery Type 2919.77 1704 M Full Term 7105 Vaginal Delivery Clayton Calculation Initial Clayton Date Initial Exam Date Initial Exam Provider Initial Ultrasound Date Last Menstrual Period Date Ultra Sound Weeks Gestation 0 Eighteen To Twenty Week Clayton Update Ultra Sound Date Fundal Height At Umbil Quickening Date Ultra Sound Latest Weeks Gestation Final Clayton Confirmed By Final Clayton Confirmed Date Final Clayton Date Ultra Sound Latest Days Gestation 0 0 Menstrual History Last Menstrual Date Menses Monthly On Bcp Conception Prior Menses Frequency Hcg Plus Date Menarche Onset Age Delivery Information Delivery Date Delivery Type Labor Anesthesia Weeks Gestation Incision Type Labor Labor Length Hrs Delivered By Post Complications Tubal Sterilization Discharge Date Comments 3 37 Discharge Information Feeding Method Contraceptive Method Maternal HG B and HCT Levels Ob Episode Information Episode Created Date Number of Fetuses Patient Bloodtype Patient rh Status Prepregnancy Weight lbs Domestic Partner Domestic Partner Phone Father Name Personal Banking Advisor Status 11/04/19 21 1 CLOSED Fetus Data First Name Last Name Admitted to NICU Weight (g) Sex Living Outcome Pediatric Complications Fetus ID Race Codes Race Delivery Type 2919.77 1704 F Full Term 7102 Vaginal Delivery Clayton Calculation Initial Clayton Date Initial Exam Date Initial Exam Provider Initial Ultrasound Date Last Menstrual Period Date Ultra Sound Weeks Gestation 0 Eighteen To Twenty Week Clayton Update Ultra Sound Date Fundal Height At Umbil Quickening Date Ultra Sound Latest Weeks Gestation Final Clayton Confirmed By Final Clayton Confirmed Date Final Clayton Date Ultra Sound Latest Days Gestation 0 0 Menstrual History Last Menstrual Date Menses Monthly On Bcp Conception Prior Menses Frequency Hcg Plus Date Menarche Onset Age Delivery Information Delivery Date Delivery Type Labor Anesthesia Weeks Gestation Incision Type Labor Labor Length Hrs Delivered By Post Complications Tubal Sterilization Discharge Date Comments 6 40 Discharge Information Feeding Method Contraceptive Method Maternal HG B and HCT Levels Ob Episode Information Episode Created Date Number of Fetuses Patient Bloodtype Patient rh Status Prepregnancy Weight lbs Domestic Partner Domestic Partner Phone Father Name Personal Banking Advisor Status 11/04/19 21 1 CLOSED Fetus Data First Name Last Name Admitted to NICU Weight (g) Sex Living Outcome Pediatric Complications Fetus ID Race Codes Race Delivery Type , Spontane ous 7103 Clayton Calculation Initial Clayton Date Initial Exam Date Initial Exam Provider Initial Ultrasound Date Last Menstrual Period Date Ultra Sound Weeks Gestation 0 Eighteen To Twenty Week Clayton Update Ultra Sound Date Fundal Height At Umbil Quickening Date Ultra Sound Latest Weeks Gestation Final Clayton Confirmed By Final Clayton Confirmed Date Final Clayton Date Ultra Sound Latest Days Gestation 0 0 Menstrual History Last Menstrual Date Menses Monthly On Bcp Conception Prior Menses Frequency Hcg Plus Date Menarche Onset Age Delivery Information Delivery Date Delivery Type Labor Anesthesia Weeks Gestation Incision Type Labor Labor Length Hrs Delivered By Post Complications Tubal Sterilization Discharge Date Comments 4 Discharge Information Feeding Method Contraceptive Method Maternal HG B and HCT Levels
--- OUTSIDE RECORDS SUMMARY | 2025-01-16 13:30 | XMS_ITS | Clinical Summary ---
Author Organization [facility] Address [address] [place] [address] Care Team Providers Care Tax Investigator Name Role Phone Unknown, Provider Primary Care Provider Unavaila ble Source Comments [facility],non-owned Affiliates and Associated Physician Practices is amultiple site organization consisting of ambulatory clinics and hospital sitesin [place], [place], [place] and [place]. This disclosure is being madepursuant to the Care Everywhere program and may not contain all information available regarding this patient. Last updated 18.[facility] [employer] Allergies Active Allergy Reactions Criticality Noted Date Comments Sulfamethoxazole W-Trimethoprim Shortness of Breath,Rash,Vomiting High 07/09/2019 Medications * Be aware that medications may not be up to date on this document. Alwaysverify current medications with the patient. Medication Sig Dispensed Refills Start Date End Date Status simvastatin (ZOCOR) 10 MG tablet Take 10 mg by mouth at bedtime Active sertraline (ZOLOFT) 100 MG tablet Take 100 mg by mouth once daily Active Active Problems No known active problems Social History Tobacco Use Types Packs/Day Years Used Date Smoking Tobacco: Every Day Smokeless Tobacco: Never Sex and Gender Information Value Date Recorded Sex Assigned at Not on file Gender Identity Not on file Sexual Orientation Not on file Last Filed Vital Signs Vital Sign Reading Time Taken Comments Blood Pressure 124/82 10/26/2019 12:35 PM FOREIGN LAW CONSULTANT Pulse 89 10/26/2019 12:35 PM FOREIGN LAW CONSULTANT Temperature 36.9 C (98.5 F) 10/26/2019 12:35 PM FOREIGN LAW CONSULTANT Respiratory Rate 16 10/26/2019 12:35 PM FOREIGN LAW CONSULTANT Oxygen Saturation 98% 10/26/2019 12:35 PM FOREIGN LAW CONSULTANT Inhaled Oxygen Concentration - - Weight 72.6 kg (160 lb) 10/26/2019 12:35 PM FOREIGN LAW CONSULTANT Height 157.5 cm (5' 2 ) 10/26/2019 12:35 PM FOREIGN LAW CONSULTANT Body Mass Index 29.26 10/26/2019 12:35 PM FOREIGN LAW CONSULTANT Plan of Treatment Health Maintenance Due Date Last Done Comments COLOGUARD (AGES 45-75) - COL ON CA SCREENING 1975 COLON MONITORING 1975 COLONOSCOPY - COLON CA SCREENING 1975 CT COLONOGRAPHY - COLON CA SCREENING 1975 Colorectal Cancer Screening 1975 FIT - COLON CA SCREENING 1975 FLEX SIG - COLON CA SCREENING 1975 MAMMOGRAM 1975 PAP SMEAR 1975 HIV SCREENING 1990 HEPATITIS C SCREENING 01/30/1993 DTAP/TDAP/TD VACCINES (1 - Tdap) 1994 HEPATITIS B VACCINE (1 of 3 - 19+ 3-dose series) 1994 PNEUMOCOCCAL VACCINE (1 of 2 - PCV) 1994 SCREENING FOR DIABETES 07/09/2019 COVID-19 VACCINE (1 - 2023-2 5 season) 2024 INFLUENZA VACCINE (#1) 2024 DEPRESSION SCREENING 10/23/2024 ZOSTER VACCINE (1 of 2) 2025 HIB VACCINE Aged Out No longer eligi ble based on patient's age to complete this topic HPV VACCINE Aged Out No longer eligi ble based on patient's age to complete this topic MENINGOCOCCAL (Group B) VACC INE SHARED DECISION-MAKING Aged Out No longer eligibl e based on patient's age to complete this topic MENINGOCOCCAL GROUPS A/C/Y/W VACCINE Aged Out No longer eligible b ased on patient's age to complete this topic Care Teams Tax Investigator Relationship Specialty Start Date End Date Unknown, Provider PCP - General 12/17/16
== END 2025-01-16 12:46 | disposition home or self-care (01) ==
LOC: CHSIMG 12:46
PROVIDERS: PCP Family Medicine; Visit Provider Advanced Practice Midwife
DX: Z12.31 Encounter for screening mammogram for malignant neoplasm of breast (principal)
CPT/HCPCS: 77063; 77067

== ENCOUNTER 2025-01-16 13:50 | Outpatient (CLI) | payer OTHER, SELFPAY ==
--- NOTE | ~2025-01-16 | XR_ITS ---
XR lumbar spine 2-3V 01/16/2025 14:03 Indication: Low back pain Procedure: 3 views lumbar spine Comparison: No prior studies for comparison. Findings: There is levocurvature of the lumbar spine. There is facet hypertrophy at L4-5 and L5-S1. T here is grade 1 degenerative spondylolisthesis at L4-5. There is disc narrowing at L5-S1. No evidence for spondylolisthesis. Pedicles intact. Impression: 1: Moderate lumbar spondylosis. Reviewed, dictated and finalized at location A. Impression: 1: Moderate lumbar spondylosis.
== END 2025-01-16 13:51 | disposition home or self-care (01) ==
LOC: MICIMG 13:51
PROVIDERS: PCP Family Medicine; Visit Provider Student in an Organized Health Care Education/Training Program
DX: M54.50 Low back pain, unspecified (principal)
CPT/HCPCS: 72100